=== PATIENT | male | born 1965 | race Caucasian/White ===

== ENCOUNTER 2017-07-16 08:57 | Day surgery (SDC) | payer OTHER ==
[2017-07-16] MEDS ORDERED: DEXAMETHASONE 10 MG/ML VIAL PF IJ ONE (08:58)
[2017-07-16] MEDS ORDERED: Lactated Ringers 1,000 ML IV ONE (08:58)
[2017-07-16] MEDS ORDERED: Xylocaine-Mpf 2 ML IJ ONE (08:58)
[2017-07-16] MEDS ORDERED: DIPRIVAN 200 MG/20 ML IV ONE (08:58)
--- NOTE | 2017-07-16 13:28 | XRAY ---
Indication: Right C4-C5 ANIYAH. Intraoperative fluoroscopy was provided for 1 minute 8 seconds. 5 lateral digital spot images submitted for interpretation demonstrates spinal needle tip projecting posterior to C5 segment and a second needle tip projecting over the posterior superior C4 segment. Correlate with intraoperative findings/report. Incidental C6-C7 anterior fusion surgery.
--- NOTE | 2017-07-16 13:32 | XRAY ---
1 minute and 8 seconds fluoroscopy time in surgery for right cervical C4-C5 ANIYAH.
--- NOTE | 2017-07-17 08:45 | OP ---
DATE OF PROCEDURE: 07/16/2017 1109 SURGEON: Joseph Cai D.O. PREOPERATIVE DIAGNOSES: Degenerative cervical spine disease, neck pain. POSTOPERATIVE DIAGNOSES: Degenerative cervical spine disease, neck pain. PROCEDURE PERFORMED: Right C4 & C5 epidural steroid injection under fluoroscopic guidance. DESCRIPTION OF PROCEDURE: The patient was taken to the operating room and laid in the prone position on the table. Skin over the injection site was prepped and draped in sterile fashion. Under fluoroscope bony anatomy at the targeted injection site was visualized. Induction agent was given as per anesthesia while vital signs were monitored. Local anesthetic agent was introduced to anesthetize the skin in the subcutaneous tissue through injection site. Under fluoroscopic guidance a #22-gauge standard spinal needle was advanced into the target epidural space. 1 cc of preservative free Decadron was injected into each of the target epidural space. While the needle was being removed normal saline was simultaneously infiltrated to avoid sterile needle tract. Skin was cleansed with alcohol and then a bandage was applied. After the procedure the pain level was 2 out of 10, before the procedure the pain level was 8 to 9 out of 10. No complications or adverse consequences were observed. The patient was returned to the holding area until stabilized before discharge to home. The patient will be followed up within ten days after the injection for reevaluation.
== END 2017-07-16 12:20 | disposition home or self-care (01) ==
LOC: SDC-PAIN 08:57
PROVIDERS: ATTEND Internal Medicine
DX: M54.16 Radiculopathy, lumbar region (principal); M62.838 Other muscle spasm
CPT/HCPCS: 64479; 64480; 72020; 77003; J2704; Q9967; J1100

== ENCOUNTER 2018-04-02 09:38 | Emergency (ER) | payer MEDICAID, OTHER ==
--- NOTE | 2018-04-02 10:16 | ERPHSYRPT ---
- History of Present Illness Time Seen by Provider: 04/02/18 10:11 Source: patient Exam Limitations: no limitations Patient Subjective Stated Complaint: states having burning pain down left leg that is now moving up into his lower back. pain for two weeks. Triage Nursing Assessment: ambulated to room per self, limping on left leg. skin w/d, color normal. Physician History: The patient is a 53-year-old male with his son complaining of worsening left lower back pain that he is moving down his left leg for the past 2 weeks. He denies any injury. He has a known problem with his lower back. He was treated late this summer at the pain clinic and was given several medications that he no longer takes. He quit going to the pain clinic because he "lost his insurance". He hasn't seen his primary medical doctor in 3 months. He he denies any problems with urination or defecation. He denies numbness or tingling. He also states that he is having pain in his left abdomen I 2 weeks it is now worse for 2 days. No N/V/D. No fever. His past medical history is significant for back pain, GERD, and possible BPH. His surgical history is significant for bilateral carpal tunnel repair. Timing/Duration: week(s) (2), gradual onset, worse Method of Injury: unknown Quality: aching Back Pain Location: lumbar spine, paraspinous muscles (left) Back Pain Radiation: upper legs (left) Severity of Pain-Max: moderate Severity of Pain-Current: moderate Modifying Factors: Improves With: nothing Associated Symptoms: lower back pain, No numbness in legs/feet, No sensory/ motor loss Previous symptoms: same symptoms as today Allergies/Adverse Reactions: fentanyl Allergy (Verified 04/02/18 10:10) morphine Allergy (Verified 04/02/18 10:10) Hx Tetanus, Diphtheria Vaccination/Date Given: Yes Hx Influenza Vaccination/Date Given: Yes Hx Pneumococcal Vaccination/Date Given: No - Review of Systems Constitutional: No Fever, No Chills Eyes: No Symptoms Ears, Nose, & Throat: No Symptoms Respiratory: No Cough, No Dyspnea Cardiac: No Chest Pain, No Edema, No Syncope Abdominal/Gastrointestinal: Abdominal Pain Genitourinary Symptoms: No Dysuria Musculoskeletal: Back Pain Skin: No Rash Neurological: No Dizziness, No Focal Weakness, No Sensory Changes Psychological: No Symptoms Endocrine: No Symptoms Hematologic/Lymphatic: No Symptoms Immunological/Allergic: No Symptoms All Other Systems: Reviewed and Negative - Past Medical History Pertinent Past Medical History: Yes Neurological History: Migraines Cardiac History: No Pertinent History Respiratory History: No Pertinent History Endocrine Medical History: No Pertinent History Musculoskeletal History: Arthritis, Fractures, Osteoarthritis Other Medical History: Neck surgery, had a fusion, epidural recently for pain relief. Wrist fracture as a kid, rib fractures, toe fracture. - Past Surgical History Past Surgical History: Yes Musculoskeletal: Orthopedic Surgery Other Surgical History: neck fusion, carpal tunnel times two - Social History Smoking Status: Never smoker Exposure to second hand smoke: Yes Drug Use: none Patient Lives Alone: No - Nursing Vital Signs Nursing Vital Signs: Initial Vital Signs Temperature 97.9 F 04/02/18 09:45 Pulse Rate 82 04/02/18 09:45 Respiratory Rate 16 04/02/18 09:45 Blood Pressure 126/81 04/02/18 09:45 O2 Sat by Pulse Oximetry 97 04/02/18 09:45 Pain Scale Pain Intensity [] 7 Pain Intensity 6 - Physical Exam General Appearance: no apparent distress, alert Eye Exam: PERRL/EOMI, eyes nml inspection Ears, Nose, Throat Exam: normal ENT inspection Neck Exam: normal inspection, non-tender, supple, full range of motion, No meningismus, No midline tenderness Respiratory Exam: normal breath sounds, lungs clear, No respiratory distress Cardiovascular Exam: regular rate/rhythm, normal heart sounds Gastrointestinal Exam: tenderness (left abd) Rectal Exam: not done Back Exam: decreased range of motion, muscle spasm (left lumbar paraspinous) Extremity Exam: limited range of motion (Straight leg raise of the left leg is positive at 45.) Neurologic Exam: alert, oriented x 3, cooperative, 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, normal mood/affect, nml station & gait, sensation nml, No motor deficits Skin Exam: normal color, warm, dry, No rash SpO2 Interpretation: normal SpO2: 97 Oxygen Delivery: Room Air - Radiology Exams L-Spine X-ray Interpretation: Reviewed by me, Teleradiologist Report (per Dr Henning), Negative, No Fracture, No Subluxation, Other (stable normal alignment.) - CT Exams Abdomen/Pelvis CT Interpretation: Negative, Tele-radiologist Report (per Dr Henning), Normal Appendix, Other (colonic diverticulosis; ) Ordered Tests: Active Orders 24 hr Category Date Time Status Clean Catch Urine Specimen STAT Care 04/02/18 10:18 Active IV Insertion STAT Care 04/02/18 10:18 Active ABDOMEN AND PELVIS W/0 CONTRAS [CT] Stat Exams 04/02/18 10:19 Completed LUMBAR LIMITED (2 OR 3 VIEWS) Stat Exams 04/02/18 10:21 Completed AMYLASE Stat Lab 04/02/18 10:32 Completed CBC W DIFF Stat Lab 04/02/18 10:32 Completed CMP Stat Lab 04/02/18 10:32 Completed LIPASE Stat Lab 04/02/18 10:32 Completed Lactic Acid Stat Lab 04/02/18 10:33 Completed UA W/RFX UR CULTURE Stat Lab 04/02/18 11:32 Completed Urine Triage Profile Stat Lab 04/02/18 11:32 Completed Medication Summary Discontinued Medications Generic Name Dose Route Start Last Admin Trade Name Freq PRN Reason Stop Dose Admin Dexamethasone Sodium Phosphate 10 mg 04/02/18 12:07 Decadron 10mg Inj. IV 04/02/18 12:08 STAT ONE Sodium Chloride 1,000 mls @ 999 mls/hr 04/02/18 10:18 04/02/18 10:44 Sodium Chloride 0.9% 1000 Ml IV 04/02/18 11:18 999 mls/hr .Q1H1M STA Administration Sodium Chloride Confirm 04/02/18 10:42 Sodium Chloride 0.9% 1000 Ml Administered 04/02/18 10:43 Dose 1,000 mls @ ud .ROUTE .STK-MED ONE Ketorolac Tromethamine 30 mg 04/02/18 10:18 04/02/18 10:44 Toradol 30 Mg Injection IV 04/02/18 10:19 30 mg STAT ONE Administration Ketorolac Tromethamine Confirm 04/02/18 10:42 Toradol 30 Mg Injection Administered 04/02/18 10:43 Dose 30 mg .ROUTE .STK-MED ONE Lab/Rad Data: Laboratory Result Diagrams 04/02/18 10:32 04/02/18 10:32 Laboratory Results 04/02/18 04/02/18 04/02/18 Range/Units 11:32 11:32 10:33 WBC (4.0-10.5) K/mm3 RBC (4.1-5.6) M/mm3 Hgb (12.5-18.0) gm/dl Hct (42-50) % MCV (78-100) fl MCH (26-32) pg MCHC (32-36) g/dl RDW (11.5-14.0) % Plt Count (150-450) K/mm3 MPV (6-9.5) fl Gran % (36.0-66.0) % Eos # (Auto) (0-0.5) Absolute Lymphs (auto) (1.0-4.6) Absolute Monos (auto) (0.0-1.3) Lymphocytes % (24.0-44.0) % Monocytes % (0.0-12.0) % Eosinophils % (0.00-5.0) % Basophils % (0.0-0.4) % Absolute Granulocytes (1.4-6.9) Basophils # (0-0.4) Sodium (137-145) mmol/L Potassium (3.5-5.1) mmol/L Chloride (98-107) mmol/L Carbon Dioxide (22-30) mmol/L Anion Gap (5-15) MEQ/L BUN (9-20) mg/dL Creatinine (0.66-1.25) mg/dL Estimated GFR ML/MIN Glucose (74-106) mg/dL Lactic Acid 1.2 (0.4-2.0) Calcium (8.4-10.2) mg/dL Total Bilirubin (0.2-1.3) mg/dL AST (17-59) U/L ALT (0-50) U/L Alkaline Phosphatase (38-126) U/L Serum Total Protein (6.3-8.2) g/dL Albumin (3.5-5.0) g/dL Amylase (30-110) U/L Lipase (23-300) U/L Urine Color YELLOW (YELLOW) Urine Appearance CLEAR (CLEAR) Urine pH 6.0 (5-6) Ur Specific [place] 1.009 (1.005-1.025) Urine Protein NEGATIVE (Negative) Urine Ketones NEGATIVE (NEGATIVE) Urine Blood NEGATIVE (0-5) Cruz/ul Urine Nitrite NEGATIVE (NEGATIVE) Urine Bilirubin NEGATIVE (NEGATIVE) Urine Urobilinogen NEGATIVE (0-1) mg/dL Ur Leukocyte Esterase NEGATIVE (NEGATIVE) Urine WBC (Auto) NONE (0-5) /HPF Urine RBC (Auto) NONE (0-2) /HPF U Epithel Cells (Auto) RARE (FEW) /HPF Urine Bacteria (Auto) RARE (NEGATIVE) /HPF Urine Mucus (Auto) SLIGHT (NEGATIVE) /HPF Urine Culture Reflexed NO (NO) Urine Glucose NEGATIVE (NEGATIVE) mg/dL Urine Opiates Level NEGATIVE (NEGATIVE) Ur Methadone NEGATIVE (NEGATIVE) Urine Barbiturates NEGATIVE (NEGATIVE) Ur Phencyclidine (PCP) NEGATIVE (NEGATIVE) Urine Amphetamine NEGATIVE (NEGATIVE) U Benzodiazepine Level NEGATIVE (NEGATIVE) Urine Cocaine NEGATIVE (NEGATIVE) Urine Marijuana (THC) NEGATIVE (NEGATIVE) 04/02/18 04/02/18 Range/Units 10:32 10:32 WBC 13.3 H (4.0-10.5) K/mm3 RBC 4.98 (4.1-5.6) M/mm3 Hgb 16.0 (12.5-18.0) gm/dl Hct 47.6 (42-50) % MCV 95.6 (78-100) fl MCH 32.1 H (26-32) pg MCHC 33.6 (32-36) g/dl RDW 13.9 (11.5-14.0) % Plt Count 216 (150-450) K/mm3 MPV 11.2 H (6-9.5) fl Gran % 64.7 (36.0-66.0) % Eos # (Auto) 0.31 (0-0.5) Absolute Lymphs (auto) 3.57 (1.0-4.6) Absolute Monos (auto) 0.80 (0.0-1.3) Lymphocytes % 26.8 (24.0-44.0) % Monocytes % 6.0 (0.0-12.0) % Eosinophils % 2.3 (0.00-5.0) % Basophils % 0.2 (0.0-0.4) % Absolute Granulocytes 8.62 H (1.4-6.9) Basophils # 0.03 (0-0.4) Sodium 142 (137-145) mmol/L Potassium 4.1 (3.5-5.1) mmol/L Chloride 111 H (98-107) mmol/L Carbon Dioxide 23 (22-30) mmol/L Anion Gap 12.9 (5-15) MEQ/L BUN 13 (9-20) mg/dL Creatinine 0.71 (0.66-1.25) mg/dL Estimated GFR > 60.0 ML/MIN Glucose 98 (74-106) mg/dL Lactic Acid (0.4-2.0) Calcium 9.2 (8.4-10.2) mg/dL Total Bilirubin 0.30 (0.2-1.3) mg/dL AST 29 (17-59) U/L ALT 59 H (0-50) U/L Alkaline Phosphatase 70 (38-126) U/L Serum Total Protein 7.4 (6.3-8.2) g/dL Albumin 4.4 (3.5-5.0) g/dL Amylase 62 (30-110) U/L Lipase 65 (23-300) U/L Urine Color (YELLOW) Urine Appearance (CLEAR) Urine pH (5-6) Ur Specific [place] (1.005-1.025) Urine Protein (Negative) Urine Ketones (NEGATIVE) Urine Blood (0-5) Cruz/ul Urine Nitrite (NEGATIVE) Urine Bilirubin (NEGATIVE) Urine Urobilinogen (0-1) mg/dL Ur Leukocyte Esterase (NEGATIVE) Urine WBC (Auto) (0-5) /HPF Urine RBC (Auto) (0-2) /HPF U Epithel Cells (Auto) (FEW) /HPF Urine Bacteria (Auto) (NEGATIVE) /HPF Urine Mucus (Auto) (NEGATIVE) /HPF Urine Culture Reflexed (NO) Urine Glucose (NEGATIVE) mg/dL Urine Opiates Level (NEGATIVE) Ur Methadone (NEGATIVE) Urine Barbiturates (NEGATIVE) Ur Phencyclidine (PCP) (NEGATIVE) Urine Amphetamine (NEGATIVE) U Benzodiazepine Level (NEGATIVE) Urine Cocaine (NEGATIVE) Urine Marijuana (THC) (NEGATIVE) - Progress Progress: improved Counseled pt/family regarding: lab results, diagnosis, need for follow-up, rad results - Departure Time of Disposition: 12:09 Departure Disposition: Home Clinical Impression: Sciatica of left side, Abdominal pain Condition: Stable Critical Care Time: No Referrals: SHEILA ARRIAZA [Primary Care Provider] - Additional Instructions: You have left-sided sciatica with low back pain and abdominal pain. The cause of the abdominal pain is not clear. You was given Toradol 30 mg and Decadron 10 mg by IV in the ER. Take Flexeril 10 mg every 8 hours as needed. You were given tomorrow off from work. Avoid any strenuous activities such as bowling until the back pain subsides. Follow-up with your primary medical doctor next week. Prescriptions: Cyclobenzaprine HCl [Flexeril] 10 mg PO Q8H PRN PRN #10 tablet PRN Reason: Pain
[2018-04-02] MEDS ORDERED: Sodium Chloride 0.9% 1000 ML 1,000 ML IV STA (10:18)
[2018-04-02] MEDS ORDERED: TORAdol 30 mg Injection IV ONE (10:18)
[2018-04-02 10:36] LABS: BASOPHIL % 0.2 % (0.0-0.4); Basophil (Absolute #) 0.03 (0-0.4); Eosinophil % 2.3 % (0.00-5.0); Eosinophil (Absolute #) 0.31 (0-0.5); Granulocyte Absolute (ANC) 8.62 (1.4-6.9); Granulocytes % 64.7 % (36.0-66.0); Hematocrit 47.6 % (42-50); Lymphocyte (Absolute #) 3.57 (1.0-4.6); Lymphocytes % 26.8 % (24.0-44.0); Mean Cell Volume 95.6 fl (78-100); Mean Corpuscular Hemoglobin 32.1 pg (26-32); Mean Corpuscular Hgb Concent. 33.6 g/dl (32-36); Mean Platelet Volume 11.2 fl (6-9.5); Platelet Count 216 K/mm3 (150-450); Red Blood Count 4.98 M/mm3 (4.1-5.6); Red Cell Distribution Width 13.9 % (11.5-14.0); White Blood Count 13.3 K/mm3 (4.0-10.5)
[2018-04-02] MEDS ORDERED: Sodium Chloride 0.9% 1000 ML 1,000 ML ONE (10:42)
[2018-04-02] MEDS ORDERED: TORAdol 30 mg Injection ONE (10:42)
[2018-04-02 10:50] LABS: ALBUMIN 4.4 g/dL (3.5-5.0); ALKALINE PHOSPHATASE 70 U/L (38-126); AMYLASE 62 U/L (30-110); ANION GAP 12.9 MEQ/L (5-15); BLOOD UREA NITROGEN 13 mg/dL (9-20); CHLORIDE 111 mmol/L (98-107); Calcium 9.2 mg/dL (8.4-10.2); Carbon Dioxide 23 mmol/L (22-30); Creatinine 1 0.71 mg/dL (0.66-1.25); Glucose 98 mg/dL (74-106); LIPASE 65 U/L (23-300); Potassium 4.1 mmol/L (3.5-5.1); SGOT/AST 29 U/L (17-59); SGPT/ALT 59 U/L (0-50); SODIUM 142 mmol/L (137-145); Total Protein 7.4 g/dL (6.3-8.2)
--- NOTE | 2018-04-02 11:29 | XRAY ---
Indication: Abdomen/pelvic pain radiating down left leg. Multiple contiguous axial images obtained through the abdomen and pelvis without contrast as ordered. Comparison: None Lung bases demonstrates minimal fibrosis/scarring. Heart is not enlarged. Small hiatal hernia. Noncontrasted stomach and bowel loops appear nonobstructed. Normal appendix. Minimal scattered descending and sigmoid diverticulosis. No free fluid/air. Nonobstructing right renal micro-calculi, largest 5 mm. Diffuse fatty liver. Remaining liver, gallbladder, pancreas, spleen, adrenal glands, kidneys, ureters, bladder, and aorta appear unremarkable for noncontrast exam. Osseous structures intact with minimal multilevel degenerative spondylosis without large disc herniation or spinal canal stenosis. No ventral or inguinal hernias. Impression: 1. Small hiatal hernia, fatty liver, nonobstructing right renal micro-calculi, and colonic diverticulosis. 2. Multilevel degenerative spondylosis without large disc herniation or spinal canal stenosis. 3. Remaining CT abdomen/pelvis without contrast exam is negative. CT DI 27.28
--- NOTE | 2018-04-02 11:31 | XRAY ---
Indication: Low back pain radiating left hip 2 weeks. No known injury. Comparison: April 02, 2006. 3 views of the lumbar spine demonstrates stable normal alignment with minimal L5-S1 disc space narrowing. New minimal multilevel degenerative endplate spurring. No other bony, articular, or soft tissue abnormalities.
[2018-04-02 11:40] LABS: Appearance CLEAR (CLEAR); Bilirubin NEGATIVE (NEGATIVE); Blood NEGATIVE Ery/ul (0-5); Glucose NEGATIVE (NEGATIVE); Ketones NEGATIVE (NEGATIVE); Leukocyte Esterase NEGATIVE (NEGATIVE); Nitrite NEGATIVE (NEGATIVE); Protein,Urine Dip NEGATIVE (Negative); Specific Gravity 1.009 (1.005-1.025); Urobilinogen NEGATIVE mg/dL (0-1)
[2018-04-02 11:53] LABS: Amphetamine,Urine NEGATIVE (NEGATIVE); Barbiturate,Urine NEGATIVE (NEGATIVE); Benzodiazepine,Urine NEGATIVE (NEGATIVE); Cocaine,Urine NEGATIVE (NEGATIVE); Methadone,Urine NEGATIVE (NEGATIVE); Opiate,Urine NEGATIVE (NEGATIVE); PCP,Urine NEGATIVE (NEGATIVE); THC,Urine NEGATIVE (NEGATIVE)
[2018-04-02] MEDS ORDERED: DECADRON 10MG INJ. IV ONE (12:07)
[2018-04-02] MEDS ORDERED: DECADRON 10MG INJ. ONE (12:12)
[2018-04-02 12:39] VITALS: BP 108/76; PULSE 78; O2SAT 98
== END 2018-04-02 12:38 | disposition home or self-care (01) ==
LOC: ED 09:38
DX: M54.42 Lumbago with sciatica, left side (principal); R10.9 Unspecified abdominal pain
CPT/HCPCS: 36415; 72100; 74176; 80053; 80307; 81001; 82150; 83605; 83690; 85025; 96360; 96374; 96375; 99284; J1100; J1885

== ENCOUNTER 2023-06-04 13:45 | Day surgery (SDC) | payer OTHER ==
[2023-06-04] MEDS ORDERED: Sodium Chloride 0.9(Preservative Free) 10 ML IJ ONE (13:46)
[2023-06-04] MEDS ORDERED: Decadron 4 MG INJ IV ONE (13:46)
[2023-06-04] MEDS ORDERED: LIDOCAINE HCL 1% 50 MG/5 ML VL PF IJ ONE (13:46)
[2023-06-04] MEDS ORDERED: Lactated Ringers 1,000 ML IV ONE (15:13)
--- NOTE | 2023-06-04 16:46 | XRAY ---
Indication: Cervical ANIYAH. Intraoperative fluoroscopy provided for 1 minute 37 seconds. 13 digital spot image submitted for interpretation demonstrates posterior needle tip projecting at the cervicothoracic junction. Small amount of contrast injected for needle tip placement. Correlate with intraoperative findings/report. Incidental lower cervical fusion hardware.
--- NOTE | 2023-06-04 16:59 | XRAY ---
One minute and 37 seconds of fluoroscopy was used in surgery for a cervical ANIYAH.
== END 2023-06-04 16:20 | disposition home or self-care (01) ==
LOC: SDC-PAIN 13:45
PROVIDERS: ATTEND Psychiatry & Neurology Pain Medicine
DX: M54.12 Radiculopathy, cervical region (principal)
CPT/HCPCS: 62321; 72040; 77003; J1100; J2001; Q9966

== ENCOUNTER 2023-10-22 12:50 | Day surgery (SDC) | payer BC ==
[2023-10-22] MEDS ORDERED: Sodium Chloride 0.9(Preservative Free) 10 ML IJ ONE (12:51)
[2023-10-22] MEDS ORDERED: Decadron 4 MG INJ IV ONE (12:51)
[2023-10-22] MEDS ORDERED: Depo-Medrol 40 MG/ML IM ONE (12:51)
[2023-10-22] MEDS ORDERED: LIDOCAINE HCL 1% 50 MG/5 ML VL PF IJ ONE (12:51)
[2023-10-22] MEDS ORDERED: DIPRIVAN 200 MG/20 ML IV ONE ×3 (14:52→15:11)
--- NOTE | 2023-10-22 16:32 | XRAY ---
Indication: Bilateral piriformis injection. Intraoperative fluoroscopy provided for 24 seconds. 2 digital spot image submitted for interpretation demonstrates posterior needle tips projecting over the left and right piriformis. Small amount of contrast injected for needle tip placement. Correlate with intraoperative findings/report.
--- NOTE | 2023-10-22 16:32 | XRAY ---
Indication: Lumbar ANIYAH. Intraoperative fluoroscopy provided for 12 seconds. 2 digital spot image submitted for interpretation demonstrates posterior needle tip projecting just posterior to lumbosacral junction interspace. Small amount of contrast injected for needle tip placement. Correlate with intraoperative findings/report.
--- NOTE | 2023-10-22 16:52 | XRAY ---
12 seconds of fluoroscopy was used in surgery for a lumbar ANIYAH.
--- NOTE | 2023-10-22 16:52 | XRAY ---
24 seconds of fluoroscopy was used in surgery for a bilateral piriformis injection.
== END 2023-10-22 15:28 | disposition home or self-care (01) ==
LOC: SDC-PAIN 12:50
PROVIDERS: ATTEND Psychiatry & Neurology Pain Medicine
DX: M54.16 Radiculopathy, lumbar region (principal)
CPT/HCPCS: 20552; 62323; 72100; 72170; 76942; 77002; 77003; J1100; J2001; J2704; Q9966